=== PATIENT | female | born 1960 | race Caucasian/White ===

== ENCOUNTER 2019-11-19 08:53 | Outpatient (CLI) | payer OTHER, SELFPAY ==
--- NOTE | 2019-11-19 08:45 | RT.EKG_ITS ---
APPROVED REPORT Exam: Resting ECG Patient Location: O HR:68 bpm ECG Measurements Heart Rate 68 AXIS IL 167 P 18 QRSd 74 QRS -25 QT 405 T 21 QTc 433 <Conclusion> Sinus rhythm...normal P axis, V-rate 60- 99 Normal Electrocardiogram
== END 2019-11-19 09:13 ==
PROVIDERS: PCP Family Medicine; Visit Provider Internal Medicine Cardiovascular Disease
DX: I48.91 Unspecified atrial fibrillation (principal)

== ENCOUNTER 2019-11-28 02:17 | Outpatient (CLI) | payer OTHER, SELFPAY ==
[2019-11-28 11:23] LABS: Abs Immature Grans 0.02 10^3/uL (0.0-0.06); Absolute Basophil Count 0.05 10^3/uL (0.0-0.2); Absolute Eosinophil Count 0.53 10^3/uL (0.0-0.7); Absolute Lymphocyte Count 2.01 10^3/uL (1.2-3.4); Absolute Monocyte Count 0.33 10^3/uL (0.1-0.8); Eosinophils % 10.5; HCT 42.6 % (36.0-46.0); HGB 13.2 g/dL (11.2-15.7); Immature Grans % 0.4; Lymphocytes % 39.9; MCH 24.8 pg (27.0-33.0); MCV 80.1 fL (80-95); MPV 11.5 fL (8.0-11.0); Monocytes % 6.5; Neutrophils % 41.7; Nucleated RBC 0 %; Platelet Count 212 10^3/uL (130-400); RBC 5.32 10^6/uL (3.93-5.22); RDW 15.2 % (11.7-14.6); RDW-SD 43.7 fL; WBC 5.04 10^3/uL (4.4-10.8)
== END 2019-11-28 02:37 ==
PROVIDERS: PCP Family Medicine; Visit Provider Obstetrics & Gynecology
DX: Z01.810 Encounter for preprocedural cardiovascular examination (principal)
CPT/HCPCS: 36415; 86850; 86900; 86901; 85025

== ENCOUNTER 2019-11-30 07:25 | Outpatient (CLI) | payer OTHER, SELFPAY ==
[2019-12-01 17:54] LABS: COVID-19 RT-PCR Result NEGATIVE (Negative)
== END 2019-11-30 07:45 ==
PROVIDERS: PCP Family Medicine; Visit Provider Obstetrics & Gynecology
DX: Z01.818 Encounter for other preprocedural examination (principal)
CPT/HCPCS: U0003

== ENCOUNTER 2019-12-04 08:01 | Day surgery (SDC) | payer OTHER, SELFPAY ==
[2019-12-04] VITALS (7 sets, daily range): BP systolic 114–122; BP diastolic 67–77; PULSE 55–72; RESP 14–17; TEMP 36–36.6; O2SAT 94–100
[2019-12-04] MEDS: Lactated Ringers 1,000 ML 125 ML IV (08:39)
[2019-12-04] MEDS: Sodium Citrate 30 ML CUP PO (09:06)
--- NOTE | 2019-12-04 10:06 | ENDO_PTH ---
PATIENT: FROYLAN HAY LOC: [facility] U#:[id number] AGE/SX: 59/F ROOM: RE12/04/[address]: Love Walker DO : 1960 BED: DIS: 12/04/2019 SPEC #: [id number] RECD: 12/04/19 12:02 STATUS: VERONA REJeffrey #: [id number] CASE: 12/04/19 10:[address]: Love Walker DEPT: Surgical Specimen RECD BY: Karen Narvaez ENTERED: 12/04/19 12:06 SP TYPE: Endo OTHR DR: Beata Yoon Tissues: 1 - ENDOCERVICAL BX/CURRETTE 2 - ENDOMETRIUM BX/CURRETTE Procedures: GROSS AND MICRO LEVEL 4 Comments: [id number]
--- NOTE | 2019-12-04 10:15 | W.PM.OP ---
Date of service: 12/04/19 Time of Service: 10:15 Operative Note Operative Note DATE OF PROCEDURE: 12/04/19 PRE-OP DIAGNOSIS: Thickened endometrium POST-OP DIAGNOSIS: same PROCEDURE: Hysteroscopy with dilation and curettage SURGEON: Love Walker ANESTHESIA: RANJAN ESTIMATED BLOOD LOSS: 5 COMPLICATIONS: None Patient was transported to: PACU Patient's condition: stable Indications: Thickened endometrium Findings: Atrophic endometrium with broad-based polypoid structure of the posterior lower uterine segment. Moderate endometrial septum in the midline. Normal-appearing tubal ostia bilaterally Procedure Description: Risk and benefit benefit of hysteroscopy with dilation curettage were explained to the patient full informed consent has been obtained. She is taken operating suite with an IV running where she placed in the dorsal supine position endotracheal intubation performed with administration of general anesthesia with ease. She is then placed in modified dorsolithotomy position in yellowfin stirrups prepped and draped in usual sterile fashion. Weighted speculum was placed after bladder was drained. Single-tooth tenaculum was used to grasp the anterior lip of the cervix. Cervical loss sequentially dilated 0.5 mm hysteroscope could be passed with ease. With normal saline installation of less than 100 cc. With hysteroscopic inspection there was found to be smooth with atrophic endometrium with a small polypoid lesion at the posterior lower uterine segment. Tubal ostia were normal bilaterally. She did have a moderate uterine septum in the midline. At this point endocervical curettage was performed for scant tissue followed by endometrial curettage for moderate tissue with polypoid structure present. At this point procedure was terminated single-tooth tenaculum and weighted speculum removed tenaculum sites were found to be hemostatic. Patient was returned dorsal supine position awoke with pain from anesthesia with ease and taken to recovery room in stable condition. Findings are as above Blood loss: 5 cc Complications: None apparent Hysteroscopic fluid deficit less than 100 cc of normal saline
[2019-12-04] MEDS: HYDROcodone 5/Acetaminophen 325 TAB PO (11:24)
== END 2019-12-04 12:48 | disposition home or self-care (01) ==
PROVIDERS: PCP Family Medicine; Visit Provider Obstetrics & Gynecology
PROC: 0UDB8ZZ Extraction of Endometrium, Via Natural or Artificial Opening Endoscopic (ICD-10-PCS; CPT 58558; principal; 2019-12-04 09:15)
DX: R93.89 Abnormal findings on diagnostic imaging of other specified body structures (principal); N84.0 Polyp of corpus uteri
CPT/HCPCS: 58558; 88305; J1100; J1885; J2001; J2405; J2704